=== PATIENT | female | born 2000 | race Caucasian/White ===

== ENCOUNTER 2024-09-14 15:07 | Day surgery (SDC) | payer BC ==
[2024-09-14] MEDS: Lactated Ringers 1,000 ML IV SCH (15:46)
[2024-09-14 16:00] LABS: HEMATOCRIT 32.7 % (37.0-47.0); HEMOGLOBIN 11.6 g/dL (12.0-16.0); MEAN CORPUSCULAR HEMOGLOBIN 32.1 pg (28.0-32.0); MEAN CORPUSCULAR HGB CONC 35.5 g/dL (32.0-36.0); MEAN CORPUSCULAR VOLUME 90.6 fL (83.0-99.0); MEAN PLATELET VOLUME 10.1 fL (9.4-12.3); PLATELET COUNT,PLT 223 K/uL (150-400); RED BLOOD CELL COUNT 3.61 M/uL (4.10-5.30); WHITE BLOOD CELL COUNT,WBC 8.74 K/uL (3.9-11.3)
[2024-09-14] MEDS ORDERED: fentaNYL 250 MCG/5 ML SDV ONE (16:11)
[2024-09-14] MEDS ORDERED: propofoL 500 MG/50 ML 50 ML ONE (16:12)
[2024-09-14] MEDS ORDERED: ceFAZolin 2 GM Vial ONE (16:12)
[2024-09-14] MEDS ORDERED: Famotidine 20 MG/2 ML SDV ONE (16:15)
[2024-09-14] MEDS ORDERED: Ketamine HCL/NACL, ISO-OSM 50 MG/5 ML Syringe ONE (16:15)
[2024-09-14] MEDS ORDERED: Sugammadex Sodium 200 MG/2 ML VIAL IV ONE (16:22)
[2024-09-14] MEDS ORDERED: Dexamethasone 4 MG/ML 5 ML MDV ONE (16:22)
[2024-09-14] MEDS ORDERED: Ondansetron 4 MG/2 ML SDV ONE (16:22)
[2024-09-14] MEDS ORDERED: Lidocaine 1% 20 ML MDV ONE (16:22)
[2024-09-14] MEDS ORDERED: Ketorolac 30 MG/ML SDV ONE (16:22)
[2024-09-14] MEDS ORDERED: Propofol 200 MG/20 ML SDV ONE (16:38)
[2024-09-14] MEDS ORDERED: Misoprostol 200 MCG Tab ONE (16:40)
[2024-09-14] MEDS ORDERED: Lidocaine 2% 11 ML Jelly Filled Syringe ONE ×2 (17:29→17:31)
[2024-09-14] MEDS ORDERED: Rocuronium Bromide 50 MG/5 ML Syringe ONE (17:45)
[2024-09-14] MEDS: Misoprostol 200 MCG Tab PO ONE (18:08)
[2024-09-14] MEDS: Tranexamic Acid in NACL,ISO-OS 1,000 MG in Premix Bag 1 BAG IV ONE (18:31)
[2024-09-14] MEDS: Tranexamic Acid in NACL,ISO-OS 100 ML ONE (18:39)
== END 2024-09-14 20:22 | disposition home or self-care (01) ==
LOC: MW.SDS 15:07 → MW.MS 15:29 → MW.SDS 20:22
PROVIDERS: ATTEND Obstetrics & Gynecology
DX: O03.4 Incomplete spontaneous abortion without complication (principal)
CPT/HCPCS: 36415; 59812; 85027; 86850; 86900; 86901; A9270; C1729; J0690; J1100; J1885; J2405; J2704; J3010; J7120; 01965; J3490